=== PATIENT | male | born 1975 | race Caucasian/White ===

== ENCOUNTER 2024-03-09 10:45 | Outpatient (CLI) | payer BC, MEDICAID, SELFPAY ==
--- NOTE | 2024-03-09 10:52 | MR_ITS ---
WS: [id number] MRI CERVICAL SPINE NONCONTRAST TECHNIQUE: Sagittal T1, T2 and STIR imaging. Axial T2, gradient, and fiesta imaging. CLINICAL INFORMATION: CERVICALGIA/CHRONIC NECK PAIN COMPARISON: None. FINDINGS: Straightening of the normal cervical lordosis. No high-grade central canal narrowing. Cord signal is normal. Disc bulging worse C5-C6 and C6-C7 worse at C6-7 C2-C3: Moderate LEFT facet arthropathy. Mild LEFT and no significant RIGHT foraminal narrowing. Spina l canal is patent. C3-C4: Tiny shallow central protrusion. Moderate LEFT facet arthropathy. Mild LEFT and no significant RIGHT foraminal narrowing. LEFT facet synovitis with periarticular edema. C4-C5: Mild disc osteophyte complex. Mild LEFT and no significant RIGHT foraminal narrowing. Moderate facet arthropathy. C5-C6: Mild disc osteophyte complex with endplate ridging. Mild LEFT and no significant RIGHT foramin al narrowing. Moderate facet arthropathy. Spinal canal is patent. C6-C7: Disc osteophyte complex with mild central canal stenosis. Shallow central protrusion. Severe L EFT and moderate RIGHT bony foraminal narrowing. Moderate facet arthropathy. C7-T1: Mild LEFT and no significant RIGHT foraminal narrowing. Mild facet arthropathy. Spinal canal i s patent. Visualized brain stem structures: Normal. Prevertebral soft tissues: Normal. Tiny 3 mm RIGHT thyroid nodule. MR/MR cervical spin wo con* [id number] IMPRESSION: 1. Moderate facet arthropathy LEFT C2-3 and LEFT C3-C4 with periarticular zachary a compatible with synovitis. 2. Shallow central protrusion C6-7 with mild central canal stenosis. Severe LE FT and moderate RIGHT bony foraminal narrowing at this level. 3. Mild LEFT C7-T1 bony foraminal narrowing. 4. Mild LEFT C4-5 and LEFT C5-6 bony foraminal narrowing. 5. Moderate facet arthropathy C4-C5 and C5-C6.
== END 2024-03-09 10:46 | disposition home or self-care (01) ==
PROVIDERS: PCP Nurse Practitioner Family; Visit Provider Nurse Practitioner Family
DX: M47.812 Spondylosis without myelopathy or radiculopathy, cervical region (principal); M65.88 Other synovitis and tenosynovitis, other site; M48.02 Spinal stenosis, cervical region; M25.78 Osteophyte, vertebrae; M50.223 Other cervical disc displacement at C6-C7 level; M48.03 Spinal stenosis, cervicothoracic region; M47.813 Spondylosis without myelopathy or radiculopathy, cervicothoracic region
CPT/HCPCS: 72141

== ENCOUNTER → 2024-05-18 10:09 | Outpatient (BNVA) | payer BC, MEDICAID, SELFPAY | PROVIDERS: PCP Nurse Practitioner Family; Referring Provider Nurse Practitioner Family; Visit Provider Orthopaedic Surgery | DX: M54.2 Cervicalgia (principal) | CPT/HCPCS: 72050 ==

== ENCOUNTER 2024-08-12 08:08 | Outpatient (CLI) | payer MEDICAID, SELFPAY ==
--- NOTE | 2024-08-12 08:12 | MR_ITS ---
WS: [id number] MRI LUMBAR SPINE NONCONTRAST TECHNIQUE: Sagittal T1, T2 and STIR imaging. Axial T1 and T2 imaging. CLINICAL INFORMATION: LUMBAR RADICULOPATHY FINDINGS: Mild lumbar curve. No acute compression. Endplate Schmorl's nodes in the lower thoracic and upper lum bar spine. L1-L2: Mild annular bulging. Mild facet arthropathy. Spinal canal and foramen are patent. L2-L3: Mild facet arthropathy. Spinal canal and foramen are patent. L3-L4: Minimal annular bulging. Mild facet arthropathy. Spinal canal and foramen are patent. L4-L5: Mild annular bulging with slight effacement of the ventral thecal sac. Narrowing of the LEFT g reater than RIGHT subarticular recess. Tiny far lateral protrusion slightly contacts the far exiting RIGHT L4 nerve root. LEFT foramen is patent. Moderate facet arthropathy. L5-S1: Mild annular bulging. Slight contact of the RIGHT S1 nerve root. Spinal canal and foramen are patent. Moderate facet arthropathy. Visualized pelvic bony structures: Normal. Paravertebral soft tissues: Normal. MR/MR lumbar spine wo con* [id number] IMPRESSION: 1. Mild annular bulging L4-5 with slight impingement of traversing LEFT greate r than RIGHT L5 nerve roots. 2. Tiny far RIGHT foraminal protrusion slightly contacts the far exiting RIGHT L4 nerve root. 3. Mild annular bulging L5-S1 slightly contacts the RIGHT S1 nerve root. 4. Moderate facet arthropathy L4-L5 and L5-S1.
== END 2024-08-12 08:09 | disposition home or self-care (01) ==
LOC: RAD 08:09
PROVIDERS: PCP Nurse Practitioner Family; Visit Provider Nurse Practitioner Family
DX: M47.897 Other spondylosis, lumbosacral region (principal); M47.896 Other spondylosis, lumbar region; M51.45 Schmorl's nodes, thoracolumbar region; R93.89 Abnormal findings on diagnostic imaging of other specified body structures; M51.16 Intervertebral disc disorders with radiculopathy, lumbar region; M51.17 Intervertebral disc disorders with radiculopathy, lumbosacral region; M43.8X6 Other specified deforming dorsopathies, lumbar region
CPT/HCPCS: 72148

== ENCOUNTER → 2024-08-20 10:47 | Outpatient (BNVA) | payer MEDICAID, SELFPAY | PROVIDERS: PCP Nurse Practitioner Family; Visit Provider Nurse Practitioner Family | DX: L57.8 Other skin changes due to chronic exposure to nonionizing radiation (principal); Q83.3 Accessory nipple; L82.1 Other seborrheic keratosis; L81.4 Other melanin hyperpigmentation; D23.72 Other benign neoplasm of skin of left lower limb, including hip; L90.5 Scar conditions and fibrosis of skin; L57.0 Actinic keratosis | CPT/HCPCS: 17000; 99213 ==

== ENCOUNTER → 2024-09-07 14:35 | Outpatient (BNVA) | payer MEDICAID, SELFPAY | PROVIDERS: PCP Nurse Practitioner Family; Visit Provider Orthopaedic Surgery | DX: M54.50 Low back pain, unspecified (principal); M48.062 Spinal stenosis, lumbar region with neurogenic claudication; M54.9 Dorsalgia, unspecified | CPT/HCPCS: 72110; 99214 ==

== ENCOUNTER → 2024-10-05 09:43 | Outpatient (BNVA) | payer MEDICAID, SELFPAY | PROVIDERS: PCP Nurse Practitioner Family; Visit Provider Specialist | DX: M19.042 Primary osteoarthritis, left hand (principal); M19.041 Primary osteoarthritis, right hand | CPT/HCPCS: 73130; J1010; J3490 ==

== ENCOUNTER → 2024-11-04 08:15 | Outpatient (BNVA) | payer MEDICAID, SELFPAY | PROVIDERS: PCP Nurse Practitioner Family; Visit Provider Orthopaedic Surgery | DX: M54.12 Radiculopathy, cervical region (principal); M48.062 Spinal stenosis, lumbar region with neurogenic claudication | CPT/HCPCS: 99213 ==

== ENCOUNTER → 2024-11-08 15:18 | Outpatient (BNVA) | payer MEDICAID, SELFPAY | PROVIDERS: PCP Nurse Practitioner Family; Referring Provider Orthopaedic Surgery; Visit Provider Nurse Practitioner Family | DX: M54.2 Cervicalgia (principal) | CPT/HCPCS: 99214 ==

== ENCOUNTER → 2024-11-24 10:27 | Outpatient (BNVA) | payer MEDICAID, SELFPAY | PROVIDERS: PCP Nurse Practitioner Family; Visit Provider Anesthesiology Pain Medicine | DX: M54.16 Radiculopathy, lumbar region (principal); M48.062 Spinal stenosis, lumbar region with neurogenic claudication | CPT/HCPCS: 64483; 64484; J1100; J3490; J9999 ==

== ENCOUNTER → 2024-11-29 11:19 | Outpatient (BNVA) | payer MEDICAID, SELFPAY | PROVIDERS: PCP Nurse Practitioner Family; Visit Provider Internal Medicine | DX: M19.049 Primary osteoarthritis, unspecified hand (principal); M85.80 Other specified disorders of bone density and structure, unspecified site | CPT/HCPCS: 36415; 80053; 82306; 82310; 82784; 83516; 83970; 84075; 84080; 84100; 84403; 84439; 84443 ==

== ENCOUNTER → 2024-12-08 09:43 | Outpatient (BNVA) | payer MEDICAID, SELFPAY | PROVIDERS: PCP Nurse Practitioner Family; Visit Provider Nurse Practitioner Family | DX: M48.062 Spinal stenosis, lumbar region with neurogenic claudication (principal); M54.2 Cervicalgia | CPT/HCPCS: 99213 ==

== ENCOUNTER 2025-02-17 05:27 | Day surgery (SDC) | payer BC, MEDICAID, SELFPAY ==
--- NOTE | 2025-02-17 05:58 | W.PM.OPSUD ---
Surgery/Procedure H&P Update DATE OF PROCEDURE: February 17, 2025 DATE H&P PERFORMED: 02/01/25 H&P UPDATE INFORMATION: I have reviewed H&P completed within last 30 days, I have examined patient prior to procedure, No changes to prior documentation, Changes to prior documentation as noted here and Risks and benefits of the procedure reviewed PLANNED PROCEDURE: Operation Date: 02/17/25 07:00 Proposed Procedures p EGD with Biopsy [id number], K90.0(Not Applicable) - Jf Graham MD
[2025-02-17 06:02] VITALS: BP 118/76; PULSE 64; RESP 18; TEMP 36.2; O2SAT 98; BMI 25.8
--- NOTE | 2025-02-17 06:42 | ANES.PREANE2 ---
Pre-Anesthetic Assessment Height/Weight: Height 1.75 m Weight 79.379 kg Temp Pulse Resp BP Pulse Ox O2 Del Method 97.2 F L 64 18 118/76 98 Room Air 02/17/25 06:02 02/17/25 06:02 02/17/25 06:02 02/17/25 06:02 02/17/25 06:02 02/17/25 06:02 Operation Date: 02/17/25 07:00 Proposed Procedures p EGD with Biopsy [id number], K90.0(Not Applicable) - Jf Graham MD Familial anesthetic complications: None Was Beta Deepika taken within 24 hours: N/A Was Clonidine taken within 24 hours: N/A Last intake: Intake Last Liquid Date 02/16/25 Last Liquid Time 18:00 Last Solid Date 02/16/25 Last Solid Time 18:00 Social No alcohol and No tobacco (Marijuana 1-2 times a week) Exam alert, oriented x 3, clear to auscultation bilaterally and regular rate & rhythm Airway Submandibular: within normal limits Cervical ROM: Other (Decreased ROM) Mallampati: Class II Comments: Comments: Edentulous History/ROS No significant history except as noted and No significant complaints Pulmonary None reported CV/HEM Hypertension None reported Hepatic None reported GI Peptic Ulcer Disease Celiac Disease Metabolic Hyperlipidemia [facility] [place] [facility] [place] Lower Back Pain and Osteoarthritis/DJD Neuropsych Neuropathy Anesthetic Plan ASA status: 3 Anesthesia: Anesthesia Evaluation, General and MAC Risk of > 500 ml blood loss (7ml/kg in children): No Medications/Allergies Home Medications ?Medication ?Instructions ?Recorded ?Confirmed ?Last Taken ?Type bupropion HCl 450 mg 24 hr tablet, 450 mg PO DAILY 05/18/24 02/15/25 02/16/25 History extended release losartan 100 1 tab PO DAILY 05/18/24 02/15/25 02/16/25 History mg-hydrochlorothiazide 12.5 mg tablet omeprazole 40 mg capsule,delayed 40 mg PO DAILY 05/18/24 02/15/25 02/16/25 History release baclofen 10 mg tablet 20 mg (2 x 10 mg) PO BID PRN 02/15/25 02/16/25 02/16/25 Rx muscle spasm #120 tabs topiramate 25 mg tablet (Topamax) 25 mg PO BID #60 tabs 02/15/25 02/16/25 02/16/25 Rx methocarbamol 750 mg tablet 750 mg PO 3XD 02/17/25 02/17/25 02/16/25 History Allergies Allergy/AdvReac Type Severity Reaction Status Date / Time aspirin Allergy Intermediate rash Verified 02/17/25 05:57 Penicillins Allergy Intermediate rash Verified 02/17/25 05:57 Current Medications Generic Name Dose Route Start Last Admin Trade Name Freq PRN Reason Stop Dose Admin Sodium Chloride 1,000 mls @ 15 mls/hr 02/17/25 05:44 02/17/25 06:07 Sodium Chloride 0.9% IV 02/18/25 05:43 15 mls/hr .Q24H PRN Administration COLONOSCOPY FLUIDS PFSH Anesthesia Social History Smoking and tobacco/nicotine status: never used tobacco/nicotine
[2025-02-17 07:09] VITALS: BP 128/73; PULSE 83; RESP 18; TEMP 36.3; O2SAT 91
[2025-02-17 07:20] VITALS: BP 139/83; PULSE 85; RESP 18; TEMP 36.2; O2SAT 94
--- NOTE | 2025-02-17 07:39 | ANE.PACU2 ---
Inpatient post-anesthesia follow up: Airway intact: Yes Vital signs: Temperature 97.2 F Pulse Rate 85 Respiratory Rate 18 Blood Pressure 139/83 Pulse Oximetry 94 Oxygen Delivery Me thod Room Air Oxygen Flow Rate Fraction of Inspir ed Oxygen Hydration adequate: Yes Nausea and vomiting: No Pain level: 1 Mental status: Baseline
== END 2025-02-17 07:40 | disposition home or self-care (01) ==
PROVIDERS: PCP Nurse Practitioner Family; Visit Provider Surgery
PROC: 0DJ08ZZ Inspection of Upper Intestinal Tract, Via Natural or Artificial Opening Endoscopic (ICD-10-PCS; principal; 2025-02-17 07:00)
DX: K31.A11 Gastric intestinal metaplasia without dysplasia, involving the antrum (principal); K29.50 Unspecified chronic gastritis without bleeding; K90.0 Celiac disease; I10 Essential (primary) hypertension; E78.5 Hyperlipidemia, unspecified; Z79.899 Other long term (current) drug therapy; Z88.0 Allergy status to penicillin; Z88.8 Allergy status to other drugs, medicaments and biological substances
CPT/HCPCS: 43239; 88305; 88342; J2704; J7030; J9999

== ENCOUNTER → 2025-04-07 08:10 | Outpatient (BNVA) | payer BC, MEDICAID, SELFPAY | PROVIDERS: PCP Nurse Practitioner Family; Visit Provider Orthopaedic Surgery | DX: M54.12 Radiculopathy, cervical region (principal); M47.892 Other spondylosis, cervical region; M50.20 Other cervical disc displacement, unspecified cervical region | CPT/HCPCS: 36415; 72050; 80053; 81001; 85025 ==

== ENCOUNTER 2025-04-27 06:21 | Outpatient (CLI) | payer BC, MEDICAID, SELFPAY ==
--- NOTE | 2025-04-27 07:15 | MR_ITS ---
WS: [id number] MRI LUMBAR SPINE NONCONTRAST HISTORY: Back pain COMPARISON: 08/12/2024 TECHNIQUE: Sagittal and axial multisequence imaging is submitted. Normal lumbar alignment. Numerous Schmorl's nodes defects in the lower thoracic and lumbar spine. No acute fracture or marrow edema. Disc spaces and vertebral body heights are well-preserved. Conus terminates normally at L1. L1-L2: Minimal disc bulging and facet arthritis. No change or stenosis. L2-L3: Minimal disc bulging with ligamentum flavum and facet arthritis. No stenosis. L3-L4: Mild annular disc bulging with moderate ligamentum flavum and facet arthritis. Small amount of fluid in the facet joints. Very minimal narrowing of the foramen. L4-L5: Mild annular disc bulging with moderate ligamentum flavum and facet arthritis. There is disc contacting the traversing L5 nerve roots. Small bilateral foraminal disc protrusions with annular fissures, RIGHT slightly greater than LEFT and previously described. Less contact on the exiting RIGHT L4 nerve root. Mild central and subarticular recess stenosis. L5-S1: Mild disc bulge. No contact on the RIGHT L5 nerve root as previously seen. MR/MR lumbar spine wo con* [id number] IMPRESSION: 1. No high-grade central or foraminal stenosis. 2. L4-5: Disc bulging contacting the traversing L5 nerve roots. Mild central a nd subarticular recess stenosis. 3. Small bilateral foraminal disc protrusions at L4-5. Less contact on the exi ting RIGHT L4 nerve root as compared to the prior study of 08/12/2024. 4. No acute lumbar spine fracture.
== END 2025-04-27 06:22 | disposition home or self-care (01) ==
LOC: RAD 06:21
PROVIDERS: PCP Nurse Practitioner Family; Visit Provider Orthopaedic Surgery
DX: M48.061 Spinal stenosis, lumbar region without neurogenic claudication (principal)
CPT/HCPCS: 72148

== ENCOUNTER 2025-05-13 09:19 | Outpatient (CLI) | payer BC, MEDICAID, SELFPAY ==
--- NOTE | 2025-05-13 09:30 | MR_ITS ---
WS: [id number] MRI CERVICAL SPINE NONCONTRAST HISTORY: M54.12 - Radiculopathy, cervical region, left-sided neck pain, no trauma. COMPARISON: 03/09/2024 Technique: Multiplanar, multisequence noncontrast imaging of the cervical spine. Normal cervical alignment with no compression fracture or significant disc space narrowing. Signal within the cervical cord is normal. Visualized posterior fossa is unremarkable. Craniocervical junction, C1 and C2 relationship, odontoid process and soft tissues are normal. C2-C3: Normal. C3-C4: Mild annular disc bulging and osteophytic ridging. Tiny central disc protrusion is unchanged. Edema in the LEFT facet joint and periarticular soft tissues has not improved since the prior exam. Mild LEFT foraminal stenosis. C4-C5: Small LEFT foraminal osteophyte. No significant stenosis. Mild LEFT facet arthritis. C5-C6: Mild annular disc bulging with osteophytic ridging and facet joint arthritis. Minimal foraminal narrowing. C6-C7: Diffuse asymmetric osteophytosis extending greater to the LEFT. Effacement of ventral CSF with severe bilateral foraminal stenosis LEFT greater than RIGHT. C7-T1: No significant stenosis. Small foraminal osteophytes. Paraspinal soft tissue are normal. MR/MR cervical spin wo con* [id number] IMPRESSION: 1. Acute facet joint synovitis on the LEFT at C3-4 is unchanged. Facet joint e al and periarticular edema reidentified. 2. Osteophytic ridging and facet arthritis at C6-7 resulting in severe bilater al foraminal stenosis and mild central stenosis. 3. Mild LEFT foraminal stenosis at C3-4. 4. Very minimal foraminal stenosis at C5-6.
== END 2025-05-13 09:20 | disposition home or self-care (01) ==
LOC: RAD 09:21
PROVIDERS: PCP Nurse Practitioner Family; Visit Provider Orthopaedic Surgery
DX: M54.12 Radiculopathy, cervical region (principal)
CPT/HCPCS: 72141